=== PATIENT | female | born 1955 | race American Indian/Alaskan Native ===

== ENCOUNTER 2017-01-15 18:11 | Emergency (ER) | payer OTHER ==
[2017-01-15] MEDS ORDERED: NACL 0.9% 1000 ML 1,000 ML IV ONE (19:07)
[2017-01-15 19:55] LABS: Basophils % (Auto) 0.3 % (0.0-1.8); Eosinophils % (Auto) 1.2 % (0.0-4.3); Hematocrit 37.1 % (30.3-42.9); Hemoglobin 11.9 gm/dl (10.1-14.3); Mean Corpuscular HGB Conc 32 % (30-34); Mean Corpuscular Hemoglobin 27 pg (28-32); Mean Corpuscular Volume 84 fl (79-97); Platelet Count 392 K/mm3 (140-440); Red Blood Count 4.42 M/mm3 (3.65-5.03); Red Cell Distribution Width 14.4 % (13.2-15.2); White Blood Count 16.1 K/mm3 (4.5-11.0)
[2017-01-15 19:58] LABS: Creatine Kinase MB 1.3 ng/mL (0.0-4.0)
[2017-01-15 19:59] LABS: Anion Gap 21 mmol/L; BUN/Creatinine Ratio 15.71; Blood Urea Nitrogen 11 mg/dL (7-17); Calcium 9.7 mg/dL (8.4-10.2); Carbon Dioxide 22 mmol/L (22-30); Chloride 99.8 mmol/L (98-107); Creatine Kinase 90 units/L (30-135); Glucose 129 mg/dL (65-100); Potassium 3.6 mmol/L (3.6-5.0); Sodium 139 mmol/L (137-145)
--- NOTE | 2017-01-15 20:35 | Emergency Department Report ---
ED Dizziness HPI - General Chief Complaint: Weakness Stated Complaint: LIGHTHEADED Time Seen by Provider: 01/15/17 19:05 Source: patient, EMS, old records reviewed (no previous med rec) Mode of arrival: Stretcher Limitations: No Limitations - History of Present Illness Initial Comments: 61-year-old female with a past medical history diabetes and hypertension presents to the hospital complains of lightheadedness several hours after giving blood. Patient states the last time she donated blood with 2-12 years ago. She's ghanshyam drinking appropriately. During episodes she was lightheaded, had generalized weakness, diaphoresis, and nausea. No reports of vomiting, chest pain, headache, shortness of breath, melena, hematochezia, or diarrhea. - Related Data Home Medications Medication Instructions Recorded Confirmed Last Taken Lisinopril [Zestril TAB] 20 mg PO DAILY 01/15/17 01/15/17 Unknown Metoprolol [Lopressor TAB] 100 mg PO DAILY 01/15/17 01/15/17 Unknown metFORMIN [Glucophage] 500 mg PO BID 01/15/17 01/15/17 Unknown Allergies Allergy/AdvReac Type Severity Reaction Status Date / Time amoxicillin trihydrate Allergy Unknown Verified 01/15/17 18:56 [From Augmentin] ciprofloxacin [From Cipro] Allergy Unknown Verified 01/15/17 18:56 ciprofloxacin HCl Allergy Unknown Verified 01/15/17 18:56 [From Cipro] levofloxacin [From Levaquin] Allergy Unknown Verified 01/15/17 18:56 Penicillins Allergy Unknown Verified 01/15/17 18:56 potassium clavulanate Allergy Unknown Verified 01/15/17 18:56 [From Augmentin] Quinolones Allergy Unknown Verified 01/15/17 18:56 sulfamethoxazole Allergy Unknown Verified 01/15/17 18:56 [From Bactrim] trimethoprim [From Bactrim] Allergy Unknown Verified 01/15/17 18:56 ED Review of Systems ROS: Stated complaint: LIGHTHEADED Other details as noted in HPI Comment: All other systems reviewed and negative Other: Constitutional: No fevers chills Eyes: No eye pain visual changes ENT: No ear pain or throat pain Neck: Denies pain Respiratory: Denies cough wheezing shortness of breath Cardiovascular: Denies chest pain, palpitations, syncope GI: Denies abdominal pain, vomiting, diarrhea, constipation, melena hematochezia : Denies dysuria, urinary frequency, or urgency Musculoskeletal: Denies back pain Skin: Denies rash, lesions, erythema Neurologic: Denies headache, numbness, weakness Psychiatric: Denies suicidal ideation, hallucinations ED Past Medical Hx - Past Medical History Previous Medical History?: Yes Hx Hypertension: Yes Hx Diabetes: Yes - Surgical History Past Surgical History?: No - Social History Smoking Status: Never Smoker Substance Use Type: None - Medications Home Medications: Home Medications Medication Instructions Recorded Confirmed Last Taken Type Lisinopril [Zestril TAB] 20 mg PO DAILY 01/15/17 01/15/17 Unknown History Metoprolol [Lopressor TAB] 100 mg PO DAILY 01/15/17 01/15/17 Unknown History metFORMIN [Glucophage] 500 mg PO BID 01/15/17 01/15/17 Unknown History ED Physical Exam - General Limitations: No Limitations - Other Other exam information: General: No limitations, patient is alert in no acute distress Head exam: Atraumatic, normocephalic Eyes exam: Normal appearance, pupils equal reactive to light, extraocular movements intact ENT: Moist mucous membrane, normal oropharynx Neck exam: Normal inspection, full range of motion, no meningismus nontender Respiratory exam: Clear to auscultation bilateral, no wheezes, rales, crackles Cardiovascular: Normal rate and rhythm, normal heart sounds Abdomen: Soft, nondistended, and nontender, with normal bowel sounds, no rebound, or guarding Extremity: Full range of motion normal inspection no deformity, no calf tenderness or edema Back: Normal Inspection, full range of motion, no tenderness Neurologic: Alert, oriented x3, cranial nerves intact, no motor or sensory deficit Psychiatric: normal affect, normal mood Skin: Warm, dry, intact ED Course Vital Signs 01/15/17 01/15/17 01/15/17 18:51 19:00 19:17 Pulse Rate 64 84 Respiratory 16 16 16 Rate Blood Pressure 76/36 Blood Pressure 76/36 91/52 [Right] O2 Sat by Pulse 100 99 100 Oximetry 01/15/17 01/15/17 19:30 20:00 Pulse Rate 87 88 Respiratory 18 18 Rate Blood Pressure Blood Pressure 108/48 110/36 [Right] O2 Sat by Pulse 99 99 Oximetry - Reevaluation(s) Reevaluation #1: 01/15/17 19:50 BP currently 108/65, 1 L of IV fluids still in progress Reevaluation #2: 01/15/17 22:56 Patient is not orthostatic upon vital signs after receiving 1 L of normal saline ED Medical Decision Making - Lab Data Result diagrams: 01/15/17 19:20 01/15/17 19:20 Lab Results 01/15/17 01/15/17 Range/Units 19:20 19:20 WBC 16.1 H (4.5-11.0) K/mm3 RBC 4.42 (3.65-5.03) M/mm3 Hgb 11.9 (10.1-14.3) gm/dl Hct 37.1 (30.3-42.9) % MCV 84 (79-97) fl MCH 27 L (28-32) pg MCHC 32 (30-34) % RDW 14.4 (13.2-15.2) % Plt Count 392 (140-440) K/mm3 Lymph % (Auto) 17.9 (13.4-35.0) % [place] % (Auto) 4.3 (0.0-7.3) % Eos % (Auto) 1.2 (0.0-4.3) % Baso % (Auto) 0.3 (0.0-1.8) % Lymph # 2.9 (1.2-5.4) K/mm3 [place] # 0.7 (0.0-0.8) K/mm3 Eos # 0.2 (0.0-0.4) K/mm3 Baso # 0.1 (0.0-0.1) K/mm3 Seg Neutrophils % 76.3 H (40.0-70.0) % Seg Neutrophils # 12.3 H (1.8-7.7) K/mm3 Sodium 139 (137-145) mmol/L Potassium 3.6 (3.6-5.0) mmol/L Chloride 99.8 (98-107) mmol/L Carbon Dioxide 22 (22-30) mmol/L Anion Gap 21 mmol/L BUN 11 (7-17) mg/dL Creatinine 0.7 (0.7-1.2) mg/dL Estimated GFR > 60 ml/min BUN/Creatinine Ratio 15.71 % Glucose 129 H (65-100) mg/dL Calcium 9.7 (8.4-10.2) mg/dL Total Creatine Kinase 90 (30-135) units/L CK-MB (CK-2) 1.3 (0.0-4.0) ng/mL CK-MB (CK-2) Rel Index 1.4 (0-4) Troponin T < 0.010 (0.00-0.029) ng/mL - EKG Data -: EKG Interpreted by Me (sinus rate [address]-T abnormality) - EKG Data When compared to previous EKG there are: previous EKG unavailable - Medical Decision Making Patient's hypotension and lightheadedness likely secondary to acute volume loss from donating blood. Patient improved and stable after receiving 1 L of normal saline. Patient is ambulating without difficulty and denies dizziness. Will be discharged home. - Differential Diagnosis volume depletion, anemia, vasovagal, arrhythmia Critical Care Time: No Critical care attestation.: If time is entered above; I have spent that time in minutes in the direct care of this critically ill patient, excluding procedure time. ED Disposition Clinical Impression: History of blood donation, Orthostatic lightheadedness, Transient hypotension Disposition: DISCHARGED TO HOME OR SELFCARE Is pt being admited?: No Does the pt Need Aspirin: No Condition: Stable Instructions: Near Syncope (ED) Additional Instructions: Your lightheadedness is likely secondary to blood donation. You received 1 L normal saline in the ER. Continue to eat and drink appropriate throughout the day. Follow-up with your primary care doctor. Return if symptoms worsen. Referrals: AARON SHAY MD [Primary Care Provider] - 3-5 Days Time of Disposition: 22:59
[2017-01-15 23:13] VITALS: BP 114/62
== END 2017-01-15 23:15 | disposition home or self-care (01) ==
LOC: ED 18:11
DX: R42 Dizziness and giddiness (principal); I95.9 Hypotension, unspecified; E11.9 Type 2 diabetes mellitus without complications
CPT/HCPCS: 36415; 80048; 82550; 82553; 84484; 85025; 93005; 93010; 96360; 99284; J7030